=== PATIENT | female | born 1965 | race Caucasian/White ===

== ENCOUNTER 2017-03-07 11:15 | Emergency (ER) | payer SELFPAY ==
[2017-03-07 11:19] VITALS: BP 180/88; PULSE 69; RESP 15; TEMP 98.4; O2SAT 98
--- NOTE | 2017-03-07 11:23 | PD ---
Physical Exam Time Seen by Provider: 11:20 Narrative 51yo F c/o R ankle, foot, and knee pain after a fall 10 days ago while vacuuming. +swelling, bruising. Says she has been ambulating on the effected extremity. Patient seen in triage. VS reviewed. Patient awaiting bed placement. Data Data Last Documented VS Vital Signs Date Time Temp Pulse Resp B/P (MAP) Pulse Ox O2 Delivery O2 Flow Rate FiO2 03/07/17 11:19 98.4 69 15 180/88 (118) 98 MDM Supervised Visit with ARACELI: Charlee East Mar 07, 2017 11:23
--- NOTE | 2017-03-07 11:33 | PD ---
HPI . right ankle pain x 9 days Chief Complaint: Injury Time Seen by Provider: 11:33 Travel History International Travel<30 days: No Contact w/Intl Traveler<30days: No Traveled to known affect area: No History of Present Illness HPI 51-year-old female here with complaints of right ankle pain. Patient with patient had sustained some injury approximately 9 days ago where she tripped over her own feet. She thought it was a sprained and just continued walking on her foot. She says the pain is not improving that much, but the swelling seems to be persistent. The swelling and pain combined is what prompted her to come to the ED for evaluation. PFSH Past Medical History Medical History: Denies Significant Hx Social History Tobacco Use: No Allergies-Medications (Allergen,Severity, Reaction): Coded Allergies: No Known Allergies (Unverified , 03/07/17) Reported Meds & Prescriptions Reported Meds & Active Scripts Active Ibuprofen 800 Mg Tab 800 Mg PO Q8H PRN Review of Systems General / Constitutional: No: Fever Eyes: No: Visual changes HENT: No: Headaches Cardiovascular: No: Chest Pain or Discomfort Respiratory: No: Shortness of Breath Gastrointestinal: No: Abdominal Pain Genitourinary: No: Dysuria Musculoskeletal: Positive: Pain (right ankle pain/right foot pain) Skin: No Rash Neurologic: No: Weakness Psychiatric: No: Depression Endocrine: No: Polydipsia Hematologic/Lymphatic: No: Easy Bruising Physical Exam Narrative GENERAL: AAO x 3, no acute distress, Well-nourished, well-developed patient. SKIN: Warm and dry. No visible rashes or bruising. HEAD: Normocephalic and atraumatic. EYES: No scleral icterus. No injection or drainage. EOM intact, PERRLA ENT: No nasal drainage noted. Mucous membranes pink. Airway patent. NECK: Supple, trachea midline. No JVD. CARDIOVASCULAR: Regular rate and rhythm without murmurs, gallops, or rubs. RESPIRATORY: Breath sounds equal bilaterally. No accessory muscle use. No rhonchi or rales. GASTROINTESTINAL: visual inspection normal EXTREMITIES: No cyanosis> + edema to right lateral malleolus, tender to touch, slight ecchymosis to proximal phalanges of right foot BACK: No obvious deformity. NEURO: CN II-12 intact, PSYCH: AAO x 3, normal affect. Data Data Last Documented VS Vital Signs Date Time Temp Pulse Resp B/P (MAP) Pulse Ox O2 Delivery O2 Flow Rate FiO2 03/07/17 11:19 98.4 69 15 180/88 (118) 98 Orders Orders Ankle, Complete ([id number]) (03/07/17 11:36) Foot, Complete ([id number]) (03/07/17 11:36) Splinting (03/07/17 ) Crutches (03/07/17 12:51) Fiberglass Short Leg Splint Ad (03/07/17 ) Fiberglass Sugartong Sp Ad Sl (03/07/17 ) MDM Medical Decision Making Medical Screen Exam Complete: Yes Emergency Medical Condition: Yes Medical Record Reviewed: Yes Differential Diagnosis ankle fracture, sprain, bone contusion Narrative Course 51 yr old female here with continued pain of right ankle after an accident 9 days ago. It appears patient could have a small fracture of the ankle. Xray ordered. Last Impressions Foot X-Ray 03/07/17 1136 Signed Impressions: Service Date/Time: Tuesday, March 07, 2017 12:11 - CONCLUSION: No acute bony injury. Calcaneal spur. Nathan Kirby MD Ankle X-Ray 03/07/17 1136 Signed Impressions: Service Date/Time: Tuesday, March 07, 2017 12:13 - CONCLUSION: There is a faint oblique fracture distal fibula proximal to lateral malleolus without angulation or distraction of fragments Nathan Kirby MD Discussed case with my attending Dr. Cain. Recommends splint, crutches and outpatient f/u. Discussed with patient. Recommend outpatient ortho/podiatry. Tylenol or Ibuprofen for pain. Apparently patient has some difficulty using crutches. We have contacted case management to see if they can assist with a walker. Patient also had no transportation home and comp field case manager assisted with transfer home. Patient verbalized understanding of instructions, questions were answered, and thanked me for their care. I advised them if their condition worsens, please return to the nearest emergency room for further care. Diagnosis Primary Impression: Fracture of distal end of right tibia Qualified Codes: S82.301A - Unspecified fracture of lower end of right tibia, initial encounter for closed fracture Referrals: Orthopedist Patient Instructions: General Instructions Additional Instructions: Continue wearing splint. If you develop any swelling or increased pain, go to the nearest emergency department. You need to see an orthopedist in the next week. Please call and make an appointment with one. Scripts Ibuprofen (Ibuprofen) 800 Mg Tab 800 MG PO Q8H Y for Pain/Inflammation, #21 TAB 0 Refills Prov: Krystina Cain MD 03/07/17 Disposition: 01 DISCHARGE HOME Condition: Stable Nina Romero Mar 07, 2017 11:33
--- NOTE | 2017-03-07 12:32 | RADRPT ---
EXAM DATE/TIME: 03/07/2017 12:13 [facility] COMPARISON: No previous studies available for comparison. INDICATIONS : Right ankle pain, swelling, and bruising after falling while vacuuming. MEDICAL HISTORY : None. SURGICAL HISTORY : None. ENCOUNTER: Initial ACUITY: 1 week PAIN SCORE: 9/10 LOCATION: Right ankle. FINDINGS: Three view exam was performed of the right ankle. The bony structures are in normal alignment. No e vidence of dislocation, or soft tissue swelling. The ankle mortise is intact. No radiopaque foreig n bodies are seen. Bony mineralization is normal. There is no oblique non-angulated nor distracted f racture of the distal fibula extending toward the internal aspect near the lateral malleolus CONCLUSION: There is a faint oblique fracture distal fibula proximal to lateral malleolus without angulation or d istraction of fragments Nathan Kirby MD on March 07, 2017 at 12:29 Board Certified Radiologist. This report was verified electronically.
--- NOTE | 2017-03-07 12:33 | RADRPT ---
EXAM DATE/TIME: 03/07/2017 12:11 [facility] COMPARISON: No previous studies available for comparison. INDICATIONS : Right foot pain after falling while vacuuming MEDICAL HISTORY : None. SURGICAL HISTORY : None. ENCOUNTER: Initial ACUITY: 1 week PAIN SCORE: 9/10 LOCATION: Right Foot/ankle. FINDINGS: Three view examination of the right foot demonstrates no soft tissue swelling, dislocation, or fractu re. The tarsal bones appear intact. The interphalangeal and metatarsophalangeal joints are intact. The calcaneus is intact. Bony mineralization is normal. Small calcaneal spur inferiorly at the ins ertion of plantar aponeurosis CONCLUSION: No acute bony injury. Calcaneal spur. Nathan Kirby MD on March 07, 2017 at 12:30 Board Certified Radiologist. This report was verified electronically.
[2017-03-07] MEDS ORDERED: IBUP800T23 PO (13:28)
== END 2017-03-07 15:35 | disposition home or self-care (01) ==
LOC: NEPK 11:15
DX: S82.61XA Displaced fracture of lateral malleolus of right fibula, initial encounter for closed fracture (principal); M77.31 Calcaneal spur, right foot; W18.30XA Fall on same level, unspecified, initial encounter; Y93.E3 Activity, vacuuming
CPT/HCPCS: 29515; 73610; 73630